=== PATIENT | female | born 1975 | race African-American/Black ===

== ENCOUNTER 2021-01-02 08:09 | Day surgery (SDC) | payer OTHER ==
[2021-01-02 08:03] LABS: Absolute Lymphocytes (CBC) 1.7 K/uL (0.7-4.9); Basophils % 0.8 % (0-1.3); Hematocrit 38.7 % (36.0-45.0); Lymphocytes % 31.8 % (15.3-44.8); MPV 6.9 fL (7.6-11.3)
[2021-01-02 08:05] LABS: Urine Appearance CLEAR (Clear); Urine Bilirubin NEGATIVE (Negative); Urine Blood NEGATIVE (Negative); Urine Color YELLOW (Yellow); Urine Glucose NEGATIVE (Negative); Urine Protein NEGATIVE (Negative); Urine Specific Gravity 1.025 (1.005-1.030); Urine Urobilinogen 0.2 mg/dL (0.2-1.0); Urine pH 6.5 (5.0-7.0)
--- NOTE | 2021-01-02 08:45 | RAD REPORT ---
EXAM DESCRIPTION: RAD - Chest Pa And Lat (2 Views) - 01/02/2021 8:08 am CLINICAL HISTORY: Pre Op breast reduction COMPARISON: None TECHNIQUE: Frontal and lateral views of the chest were obtained. FINDINGS: The lungs are clear. Heart size is normal and central vasculature is within normal limit s. No pleural effusion or pneumothorax seen. No acute bony finding noted. No aortic abnormality. IMPRESSION: No acute cardiopulmonary process.
[2021-01-02] MEDS ORDERED: CEFAZOLIN SODIUM 1 GM/VIAL ONE (08:51)
[2021-01-02] MEDS ORDERED: GENTAMICIN SULF 80 MG/2ML INJ ONE (08:51)
[2021-01-02] MEDS ORDERED: LIDOCAINE 1% W/EPI 1:100,000 MDV 50 ML VIAL ONE (08:52)
[2021-01-02] MEDS ORDERED: NA CHLORIDE 0.9% 500 ML ONE (08:52)
[2021-01-02 08:55] LABS: Urine Microscopic Reflex NO UMIC
[2021-01-02] MEDS ORDERED: Ringers Lactate 1,000 ML IV ONE ×4 (08:55→14:29)
[2021-01-02] MEDS ORDERED: CEFAZOLIN/NS 1gm 1 GM/50 ML BAG ONE (08:56)
[2021-01-02] MEDS ORDERED: propofoL 200 MG/20 ML VIAL IV ONE (09:03)
[2021-01-02] MEDS ORDERED: MIDAZOLAM HCL 2 MG/2 ML INJ ONE (09:03)
[2021-01-02] MEDS ORDERED: GLYCOPYRROLATE 0.2 MG/ML SYR ONE (09:03)
[2021-01-02] MEDS ORDERED: LIDOCAINE 2% MPF 5 ML VIAL ONE (09:03)
[2021-01-02] MEDS ORDERED: SCOPOLAMINE HYDROBROMIDE PATCH TD ONE (09:04)
[2021-01-02] MEDS ORDERED: FENTANYL CITR 250 MCG/5 ML ONE (09:04)
[2021-01-02] MEDS ORDERED: ONDANSETRON 4 MG/2 ML VIAL ONE ×2 (09:04→15:43)
[2021-01-02] MEDS ORDERED: ROCURONIUM 50 MG/5 ML VIAL IV ONE ×2 (09:04→11:16)
[2021-01-02] MEDS ORDERED: dexAMETHasone 10 MG/ML VIAL ONE (10:33)
[2021-01-02] MEDS ORDERED: FENTANYL CITR 100 MCG/2 ML ONE ×2 (11:16→14:17)
[2021-01-02] MEDS ORDERED: Phenylephrine HCl 10 MG/ML 1 ML VIAL ONE (12:03)
[2021-01-02] MEDS ORDERED: MORPHINE 10 MG/ML VIAL ONE (12:42)
[2021-01-02] MEDS ORDERED: KETOROLAC 30 MG/ML INJ ONE (13:45)
[2021-01-02] MEDS ORDERED: Mastisol Adhesive Liq ONE ×2 (15:07→15:12)
[2021-01-02] MEDS ORDERED: HYDROMORPHONE HCL 1 MG/ML INJ ONE (15:42)
[2021-01-02] MEDS ORDERED: PROMETHAZINE INJ 25 MG/ML AMP ONE ×2 (15:54→18:06)
[2021-01-02] MEDS ORDERED: CODEINE 30MG/APAP 300MG TAB ONE (17:33)
[2021-01-02 18:23] VITALS: BP 92/61; TEMP 97.4; O2SAT 97
[2021-01-02] MEDS ORDERED: HYDROCODONE/APAP 5/325 MG TAB ONE (18:39)
--- NOTE | 2021-01-03 01:59 | OP ---
Surgeon: Demetri Aguilar MD Gatekeeper: Brent. Preoperative Diagnosis: Breast enlargement. Postoperative Diagnosis: Breast enlargement. Procedure Performed: Breast reduction. Anesthesia: General. Procedure In Detail: After satisfactory induction of general anesthesia, chest was prepped with Dura Prep, dry sterile drapes were applied in the usual manner. A 5 cm template was used to outline both the right and left areolas. Transverse curved incisions were made. Dissection was proceeded down we ll after the skin was cleared with a dermabrader or tenotomy scissors. Both sides were dissected jason n spontaneously. Dissection proceeded down toward the fascia. The flap was thinned to approximately 1.5 cm thickness and elevated toward the sternum, clavicle, anterior axillary line. Then, the right side was dissected inferiorly and lateral excess breast tissue was excised with scalpel and electroc autery, and then the deepithelialized tissue was formed into a cone with 2-0 PDS suture. Straps were elevated at 12 o'clock, 0130, and 3 o'clock position on the right breast. The straps were then wove n in and out the pectoralis muscle back to base of cone, back to pectoralis muscle, back to base of c one, tied themselves with 2-0 PDS suture. This was done for the 12 o'clock and 0130 straps. The 3 o 'clock strap was sewn with sternum at the 3 o'clock position with 2-0 Ethibond. Left side done in a mirror-image manner. The wounds were then debrided with dog ears medial and laterally and irrigated with antibiotic solution. 10 MARC was brought out of the axilla, sewn in place with 2-0 silk. Wound c losed with 3-0 Vicryl subcu, 3-0 PDS running subcuticular tied from medial to lateral, lateral to med ial, tied in vertical meridian of the breast. Left side was done in an identical manner. The patien t was sat up. Site for new nipple-areolar complex was marked out. Tissue was cored out. The nipple -areolar complex delivered and sewn with interrupted 4-0 PDS, followed by 4-0 PDS running subcuticula r. Dressings consisted of tincture of benzoin, Steri-Strips, followed by Esmarch, fluffs, and Alan wr ap. The patient tolerated the procedure well. 352 g from the right, 190 g from the left were remove kimani BEAUCHAMP/SOPHIE Voice ID: [id number] Report ID: [id number]
== END 2021-01-02 18:38 | disposition home or self-care (01) ==
LOC: OR 08:09 → EDBD 09:00 → OR 18:38
PROVIDERS: ATTEND Specialist
PROC: 0HSV0ZZ Reposition Bilateral Breast, Open Approach (ICD-10-PCS; principal; 2021-01-02 09:00)
DX: N64.81 Ptosis of breast (principal)
CPT/HCPCS: 36415; 71046; 81003; 85025; 88305; 93005; J0690; J1100; J1170; J1580; J2250; J2370; J2405; J2550; J2704; J3010; J7040; J7120